=== PATIENT | male | born 1965 | race Two or more races ===

== ENCOUNTER 2019-03-03 07:49 | Day surgery (SDC) | payer BC ==
[2019-03-03] VITALS (8 sets, daily range): BP systolic 106–120; BP diastolic 63–78
[~2019-03-03] VITALS: Ht 180.3 cm; Wt 74.8 kg
--- NOTE | 2019-03-03 07:46 | Anethesia Preoperative Eval ---
Anesthesia Pre-op PMH/ROS General Date of Evaluation: Mar 03, 2019 Time of Evaluation: 07:45 Anesthesiologist: shanel ASA Score: ASA 3 Mallampati Score Class I : Soft palate, uvula, fauces, pillars visible Class II: Soft palate, uvula, fauces visible Class III: Soft palate, base of uvula visible Class IV: Only hard plate visible Mallampati Classification: Class II Surgeon: milagro Diagnosis: colon screening Surgical Procedure: colonoscopy Anesthesia History: none Social History: smoking - nonsmoker Family History: no anesthesia problems Allergies: Coded Allergies: No Known Allergies (Unverified , 02/28/19) Medications: see eMAR Patient NPO?: Yes Past Medical History Cardiovascular: Reports: HTN, arrhythmia, other - hypercholesterolemia Musculoskeletal/Integumentary: Reports: other - scoliosis PSxH Narrative: right shoulder sx, back sx Anesthesia Pre-op Phys. Exam Physician Exam Last Vital Signs Date Time Temp Pulse Resp B/P (MAP) Pulse Ox O2 Delivery O2 Flow Rate FiO2 03/03/19 08:23 Room Air 03/03/19 08:21 98.5 55 18 112/78 99 Constitutional: NAD Neurologic: CN 2-12 intact Cardiovascular: RRR Respiratory: CTA Gastrointestinal: S/NT/ND Airway Exam Mallampati Score: Class II MO: limited Neck: flexible TMD: 2fb ROM: limited Anesthesia Pre-op A/P Risk Assessment & Plan Assessment: asa3 Plan: mac Status Change Before Surgery: No Pre-Antibiotics Drug: Vandana York MD Mar 03, 2019 07:45
[~2019-03-03 07:49] MED LIST: Atropine Inj 1mg/10ml Syr IV PRN; DiphenhydrAMINE 50mg/ml Inj IVP PRN; LR 1000ml 1,000 ML IVLG SCH; Midazolam 2mg/2ml Inj IVP PRN; fentaNYL 100 mcg/2 mL IV PRN
[2019-03-03] MEDS ORDERED: ELIQUIS5 MG PO (08:18)
[2019-03-03] MEDS ORDERED: ADDERAL20 MG ORAL (08:18)
[2019-03-03] MEDS ORDERED: Lidocaine 1% MPF 10mg/ml 5ml ONE (09:00)
[2019-03-03] MEDS ORDERED: Propofol 200mg/20ml IV ONE (09:00)
[2019-03-03] MEDS ORDERED: LR 1000ml ONE (09:00)
--- NOTE | 2019-03-03 09:22 | Short Stay Surgery H&P ---
History of Present Illness History of Present Illness Chief Complaint screening colon. See typed H&P HPI Barney Guerra is a 53 year old male who was admitted on for Colon Screening Patient History Allergies: Coded Allergies: No Known Allergies (Unverified , 02/28/19) Medication History Scheduled Apixaban (Eliquis), 5 MG PO BID, (Reported) Dextroamphetamine/Amphetamine (Adderall 20 mg Tablet), 40 MG ORAL DAILY, ( Reported) Physical Exam Vital Signs Last Vital Signs Date Time Temp Pulse Resp B/P (MAP) Pulse Ox O2 Delivery O2 Flow Rate FiO2 03/03/19 08:23 Room Air 03/03/19 08:21 98.5 55 18 112/78 99 Plan Attestation Are the patient's medical conditions optimized for surgery? Yanick Carr MD Mar 03, 2019 09:22
--- NOTE | 2019-03-03 09:23 | Pre-Procedure Note/Attestation ---
Pre-Procedure Note/Attestation Complete Prior to Procedure Planned Procedure: not applicable Procedure Narrative: screening colon Indications for Procedure Pre-Operative Diagnosis: screening Attestation I attest that I discussed the nature of the procedure; its benefits; risks and complications; and alternatives (and the risks and benefits of such alternatives ), prior to the procedure, with the patient (or the patient's legal brand representative). I attest that, if there was a reasonable possibility of needing a blood transfusion, the patient (or the patient's legal brand representative) was given the [facility] standardized written summary, pursuant to the Sukhjinder Enma Blood Safety Act ([place] Health and Safety Code # 1645, as amended). I attest that I re-evaluated the patient just prior to the surgery and that there has been no change in the patient's H&P, except as documented below: Yanick Carr MD Mar 03, 2019 09:23
--- NOTE | 2019-03-03 10:12 | Immediate Post-Op Evaluation ---
Immediate Post-Op Evalulation Immediate Post-Op Evalulation Procedure: colonoscopy Date of Evaluation: Mar 03, 2019 Time of Evaluation: 10:12 IV Fluids: 400ml lr Blood Products: none Estimated Blood Loss: negligible Blood Pressure Systolic: 109 Blood Pressure Diastolic: 64 Pulse Rate: 59 Respiratory Rate: 18 O2 Sat by Pulse Oximetry: 100 Temperature (Fahrenheit): 97.8 Pain Score (1-10): 0 Nausea: No Vomiting: No Complications none Patient Status: awake, reacts, patent Hydration Status: adequate Drug: Vandana York MD Mar 03, 2019 10:12
--- NOTE | 2019-03-03 10:14 | 48 Hour Post Anesthesia Eval ---
Post Anesthesia Evaluation Procedure: colonoscopy Date of Evaluation: Mar 03, 2019 Time of Evaluation: 10:14 Blood Pressure Systolic: 110 0: 65 Pulse Rate: 55 Respiratory Rate: 18 Temperature (Fahrenheit): 97.8 O2 Sat by Pulse Oximetry: 100 Airway: patent Nausea: No Vomiting: No Pain Intensity: 0 Hydration Status: adequate Cardiopulmonary Status: stable Mental Status/LOC: patient returned to baseline Post-Anesthesia Complications: none Follow-up care needed: N/A Vandana Zuniga MD Mar 03, 2019 10:14
--- NOTE | 2019-03-03 21:53 | Brief Operative Note ---
Immediate Post Operative Note Operative Note Pre-op Diagnosis: screening Specimen: none Complications: none Condition: stable Fluids: per anesthesia Implant(s) used?: No Yanick Carr MD Mar 03, 2019 21:53
--- NOTE | 2019-03-03 21:53 | Endoscopy Procedure Note ---
Endoscopy Procedure Note General Indication for Procedure: screen Procedures Performed: colonoscopy Operative Findings/Diagnosis: normal Anesthesia Anesthesiologist: Lopez Keller Anesthesia: MAC, moderate sedation Inserted Devices Implant(s) used?: No GI Core Measures 50 yrs or older w/o bx or poly: Yes 10yrs. F/U recommended: No If not recommended, why?: Inadequate Prep 18 years or older w/prev. colo: No <3yrs. since last colonoscopy: No Med reason:<3 yrs.: System Reason:<3 yrs.: Last colonoscopy >= to 3yrs: Yes Yanick Carr MD Mar 03, 2019 21:53
--- NOTE | 2019-03-04 01:00 | Operative Note - Dictated ---
DATE OF OPERATION: 03/03/2019 GASTROENTEROLOGY PROCEDURE PROCEDURE: Screening colonoscopy. SURGEON: Yanick Carr M.D. ANESTHESIA: Please see the separate anesthesiologist notes for details. PRE-ENDOSCOPIC DIAGNOSIS: Need for screening colonoscopy. POST-ENDOSCOPIC DIAGNOSES: 1. Normal colonoscopy including 5 to 10 cm in the terminal ileum. 2. Approximately 5% mucosal coverage of the right colon with stool making visualization in this area limited. DESCRIPTION OF PROCEDURE: The procedure, its risks, indications, and alternatives were explained to the patient and informed consent was obtained. A rectal exam was done, which was normal and then the colonoscope was introduced into the rectum and advanced to the cecum and then for approximately 5 to 10 cm into the terminal ileum without difficulty. The colonoscope was then gradually withdrawn and the mucosa examined carefully. Examination of the terminal ileal mucosa as well as the remainder of the colon did not show any polyps or other abnormalities. There was a 5% degree of mucosa covered in the right colon with sticky semiformed stool, which could not be cleared up. This limited the evaluation in this area to a small degree. There were however no large polyps or masses identified. Retroflexed view of the rectum was unremarkable. The colonoscope was removed. The patient was sent to recovery in good condition. COMPLICATIONS: None. RECOMMENDATIONS: 1. Follow up with primary physician. 2. Repeat colonoscopy in 5 years. Thank you for asking me to participate in the care of this patient. Yanick Carr M.D. DR: KYARA JOB#: [id number] CC: Lyn Fan M.D. ; FAX#: [phone]
== END 2019-03-03 11:00 | disposition home or self-care (01) ==
LOC: GAS 07:49
DX: Z12.11 Encounter for screening for malignant neoplasm of colon (principal); I10 Essential (primary) hypertension; E78.00 Pure hypercholesterolemia, unspecified; M41.9 Scoliosis, unspecified
CPT/HCPCS: 45378; J2704; J7120; 94003; 94150